=== PATIENT | female | born 1960 | race Caucasian/White ===

== ENCOUNTER → 2018-09-01 | Outpatient (CLI) | payer OTHER ==
[~2018-09-01] MED LIST: BUPR150T2; FLUO20; HYDACE5 PO; PENVK500 PO
== END | disposition home or self-care (01) ==
LOC: LAB 19:29 → LAB SHORT 19:29
DX: L08.9 Local infection of the skin and subcutaneous tissue, unspecified (principal)
CPT/HCPCS: 87070; 87075; 87205

== ENCOUNTER → 2021-03-13 | Outpatient (CLI) | payer OTHER | END | disposition home or self-care (01) | LOC: LAB SHORT 17:00 | DX: R10.9 Unspecified abdominal pain (principal) | CPT/HCPCS: 87077; 87086; 87186 ==

== ENCOUNTER 2021-04-26 14:16 | Day surgery (SDC) | payer OTHER ==
[~2021-04-26] VITALS: Ht 160 cm; Wt 131.4 kg
[2021-04-26] MEDS ORDERED: ABILIFY MYCITE10 M2 (14:39)
[2021-04-26] MEDS ORDERED: METF500 (14:39)
[2021-04-26] MEDS ORDERED: CITALOPRAM HBR10 MG (14:40)
[2021-04-26] MEDS ORDERED: QUET200 (14:40)
[2021-04-26] MEDS ORDERED: ALBU90OI (14:40)
[2021-04-26] MEDS ORDERED: SPIR25 (14:41)
[2021-04-26] MEDS ORDERED: Amitriptyline H10 MG (14:41)
[2021-04-26] MEDS ORDERED: OXYC5 (14:43)
== END 2021-04-26 16:18 | disposition home or self-care (01) ==
LOC: ORSCSDS 14:16
PROVIDERS: Orthopaedic Surgery
PROC: 01N50ZZ Release Median Nerve, Open Approach (ICD-10-PCS; principal; 2021-04-26 15:45)
DX: G56.03 Carpal tunnel syndrome, bilateral upper limbs (principal); E11.9 Type 2 diabetes mellitus without complications; J45.909 Unspecified asthma, uncomplicated; E66.01 Morbid (severe) obesity due to excess calories; Z68.43 Body mass index [BMI] 50.0-59.9, adult; Z79.899 Other long term (current) drug therapy; Z79.84 Long term (current) use of oral hypoglycemic drugs; F31.9 Bipolar disorder, unspecified
CPT/HCPCS: 82947; J2250; J2704; J3010; J7120

== ENCOUNTER → 2021-05-27 | Outpatient (CLI) | payer OTHER ==
[~2021-05-27] MED LIST changes: +ABILIFY MYCITE10 M2; +ALBU90OI; +Amitriptyline H10 MG; +CITALOPRAM HBR10 MG; +METF500; +OXYC5; +QUET200; +SPIR25
[2021-05-27 17:07] LABS: Source, Urine Clean Catch
[2021-05-27 18:03] LABS: Bilirubin, Urine Neg (Neg); Blood, Urine 5+ (Neg); Glucose Qualitative, Urine Neg (Neg); Ketones, Urine Neg (Neg); Leukocyte Esterase, Urine 1+ (Neg); Nitrite, Urine Neg (Neg); Protein, Urine 2+ (Neg); Urobilinogen, Urine NORM (Normal)
[2021-05-27 18:14] LABS: Appearance, Urine Hazy (Clear); Color, Urine Pale Yellow (P-Yellow)
[2021-05-27 18:15] LABS: Bacteria Mod /hpf; Squamous Epithelial Cells Many /hpf (Few)
[2021-05-27 19:30] LABS: Protein, Urine Random 40.8 mg/dL (0.0-11.9)
[2021-05-27 19:40] LABS: Protein/Creat Ratio, Ur Random 0.3
== END | disposition home or self-care (01) ==
LOC: LAB SHORT 13:30
PROVIDERS: Internal Medicine Nephrology
DX: N18.32 Chronic kidney disease, stage 3b (principal); R80.9 Proteinuria, unspecified
CPT/HCPCS: 81001; 82570; 84156; 87086

== ENCOUNTER → 2021-11-30 | Outpatient (CLI) | payer OTHER ==
[2021-12-02 20:08] LABS: HPV 16 Negative (Negative); HPV 18 Negative (Negative); HPV OTHER HR TYPES Negative (Negative)
== END | disposition home or self-care (01) ==
LOC: LAB SHORT 18:59 → LAB 18:59
PROVIDERS: Student in an Organized Health Care Education/Training Program
DX: Z12.4 Encounter for screening for malignant neoplasm of cervix (principal)
CPT/HCPCS: 87624; G0145

== ENCOUNTER → 2022-08-03 | Outpatient (CLI) | payer OTHER ==
[2022-08-03 14:11] LABS: Albumin, Blood 3.6 g/dL (3.4-5.0); Bilirubin, Total 0.4 mg/dL (0.1-1.0); Bun/Creatinine Ratio 12.7 (12.0-20.0); Calcium, Blood 9.5 mg/dL (8.5-10.1); Creatinine, Blood 1.58 mg/dL (0.40-1.00); Globulin, Blood 3.5 g/dL (2.2-4.0); Potassium, Blood 4.2 mmol/L (3.5-5.5); Total Protein, Blood 7.1 g/dL (6.4-8.2)
[2022-08-03 14:14] LABS: BASOPHILS ABSOLUTE AUTO 0.04 K/mm3 (0.00-0.23); BASOPHILS PERCENT AUTO 1 % (0-2); EOSINOPHILS ABSOLUTE AUTO 0.11 K/mm3 (0.00-0.68); EOSINOPHILS PERCENT AUTO 2 % (0-6); Hematocrit 40.2 % (33.0-51.0); Hemoglobin 12.7 g/dL (11.5-16.0); IMMATURE GRAN ABSOLUTE AUTO 0.03 K/mm3 (0.00-0.10); IMMATURE GRAN PERCENT AUTO 1 % (0-1); LYMPHOCYTES ABSOLUTE AUTO 0.93 K/mm3 (0.84-5.20); LYMPHOCYTES PERCENT AUTO 18 % (21-46); MONOCYTES ABSOLUTE AUTO 0.34 K/mm3 (0.16-1.47); MONOCYTES PERCENT AUTO 7 % (4-13); Mean Corpuscular HGB 27.7 pg (26.0-34.0); Mean Corpuscular HGB Conc 31.6 g/dL (31.5-36.5); Mean Corpuscular Volume 88 fL (80-100); Mean Platelet Volume 10.7 fL (9.1-12.4); NEUTROPHILS ABSOLUTE AUTO 3.69 K/mm3 (1.96-9.15); NEUTROPHILS PERCENT AUTO 72 % (41-73); Platelet Count 198 K/mm3 (150-400); RDW Coefficient Variation 15.2 % (11.7-14.2); RDW Standard Deviation 48.5 fL (35.1-46.3); Red Blood Cell Count 4.59 M/mm3 (3.80-5.20); White Blood Cell Count 5.14 K/mm3 (4.00-11.30)
== END | disposition home or self-care (01) ==
LOC: LAB 09:35 → LAB SHORT 09:35
PROVIDERS: Student in an Organized Health Care Education/Training Program
DX: E11.22 Type 2 diabetes mellitus with diabetic chronic kidney disease (principal); I12.9 Hypertensive chronic kidney disease with stage 1 through stage 4 chronic kidney disease, or unspecified chronic kidney disease; N18.32 Chronic kidney disease, stage 3b; L40.9 Psoriasis, unspecified
CPT/HCPCS: 80053; 83036; 85025

== ENCOUNTER 2022-12-12 08:00 | Day surgery (SDC) | payer OTHER ==
[~2022-12-12] VITALS: Ht 162.6 cm; Wt 127.6 kg
--- NOTE | 2022-12-12 09:11 | NUR ---
12/12/22 0911 Sammie Rodriguez SPOKE WITH DR CORNELIUS ABOUT PTS ALLERGY TO PCNS WHO DETERMINED THAT HE WAS COMFORTABLE WITH THE PT RECIEVING ANCEF.
[2022-12-12 10:40] VITALS: BP 130/67
--- NOTE | 2022-12-12 10:42 | NUR ---
12/12/22 1042 LAZ CARDONA IV REMOVED IN PACU. CANNULA WAS KINKED, HOWEVER, IT WAS COMPLETLY INTACT, GILL WELL.
== END 2022-12-12 11:00 | disposition home or self-care (01) ==
LOC: ORSCSDS 08:00
PROVIDERS: Orthopaedic Surgery
PROC: 01N50ZZ Release Median Nerve, Open Approach (ICD-10-PCS; principal; 2022-12-12 09:30)
DX: G56.01 Carpal tunnel syndrome, right upper limb (principal); F31.9 Bipolar disorder, unspecified; Z79.899 Other long term (current) drug therapy; E11.9 Type 2 diabetes mellitus without complications; Z79.84 Long term (current) use of oral hypoglycemic drugs; E66.01 Morbid (severe) obesity due to excess calories; Z68.42 Body mass index [BMI] 45.0-49.9, adult; J45.909 Unspecified asthma, uncomplicated
CPT/HCPCS: 82947; J0690; J1100; J2250; J2405; J2795; J3010; J7120

== ENCOUNTER → 2023-04-09 | Outpatient (CLI) | payer OTHER | LOC: LAB 09:42 → LAB SHORT 09:42 | DX: N39.0 Urinary tract infection, site not specified (principal) | CPT/HCPCS: 87086 ==